=== PATIENT | female | born 1995 | race Caucasian/White ===

== ENCOUNTER 2016-09-20 16:43 | Emergency (ER) | payer MEDICAID ==
[~2016-09-20 16:43] MED LIST: PREN1CAP PO
--- NOTE | 2016-09-20 17:26 | PD ---
HPI Chief Complaint The patient complains of left lower quadrant abdominal pain that starts in the left low back and radiates around to the front, this been going on for several hours today. Date Seen: September 20, 2016 Travel History International Travel<30 Days: No Contact w/Intl Traveler<30Days: No Known Affected Area: No History of Present Illness HPI This patient is 21-year-old white female at 29 weeks gestation [facility] She presents complaining of low left lower quadrant abdominal pain that originated around in the left low back in and came around front. She denies bleeding or leakage of fluid, baby is active, no contractions , heart rate tracing is reactive. Para: 0 : 1 History Social History Alcohol Use: No Tobacco Use: No Substance Abuse: No Allergies-Medications (Allergen,Severity, Reaction): Coded Allergies: Common Ragweed (Verified Allergy, Severe, 09/09/16) Dog Dander (Verified Allergy, Severe, 09/09/16) Grass (Verified Allergy, Severe, 09/09/16) Uncoded Allergies: TREES (Allergy, Severe, 05/07/12) Home Meds Active Scripts Vit W/ Fe Polysacch C (Vitafol Ultra 29-0.6-0.4-200 mg)1 Cap Cap1 Tab PO DAILY #30 BOTTLE Ref 11 Prov:Soni Myers 06/23/16 Review of Systems General / Constitutional: No: Fever, Weight Gain, Chills, Other Eyes: No: Diploplia, Blurred Vision, Visual changes, Pain, Photophobia HENT: No: Headaches, Vertigo, Lightheadedness Cardiovascular: No: Irregular Rhythm, Chest Pain or Discomfort, Palpitations, Tachycardia, Syncope, Varicosities, Edema, Cyanosis Respiratory: No: Cough, Short of Breath, Other Gastrointestinal: Abdominal Pain, No: Nausea, Vomiting, Diarrhea Genitourinary: No: Decreased Urinary Output, Oliguria Musculoskeletal: No: Limited ROM, Weakness, Cramping, Edema, Pain Skin: No Rash, No Itching, No Dryness, No Lumps, No Change in Pigmentation, No Change in Nails, No Alopecia, No Lesions Neurologic: No: Weakness, Dizziness, Syncope, Focal Abnormalities, Coordination Problem, Headache, Slurred Speech, Seizures Psychiatric: No: Depression, Suicidal Ideations, Homicidal Ideation Endocrine: No: Heat Intolerance, Cold Intolerance, Polydipsia, Polyuria, Other Physical Exam Narrative GENERAL: Well-nourished, well-developed patient. SKIN: Warm and dry. HEAD: Normocephalic and atraumatic. EYES: No scleral icterus. No injection or drainage. ENT: No nasal drainage noted. Mucous membranes pink. Airway patent. NECK: Supple, trachea midline. No JVD. CARDIOVASCULAR: Regular rate and rhythm without murmurs, gallops, or rubs. RESPIRATORY: Breath sounds equal bilaterally. No accessory muscle use. BREASTS: Bilateral exam showed no masses , no retractions, no nipple discharge. ABDOMEN/GI: Abdomen soft, non-tender, bowel sounds present, no rebound, no guarding , no CVA tenderness her pain is in the lumbar area on the left Gravid to [29-] weeks size Fundal Height: [-29] GENITOURINARY: External Genitalia: intact and normal in appearance BUS glands: [-] Cervix: [-] Dilatation: [-Closed] Effacement: [-] Thick Station: [-3] ] Membranes: [intact ] Uterine Contractions: 0 FHT's: Category: [1-] Baseline: [133-] Reactive: [-yes] Variability: [mod-] Decels: [-none] EXTREMITIES: No cyanosis or edema. BACK: Nontender without obvious deformity. No CVA tenderness. NEUROLOGICAL: Awake and alert. Motor and sensory grossly within normal limits. Five out of 5 muscle strength in all muscle groups. Normal speech. Data Data Orders Vital Signs (Adult) .ON ADMISSION (09/20/16 17:13) ^ Labor Status (09/20/16 17:13) Urinalysis - C+S If Indicated (09/20/16 17:13) MDM Interpretation(s) This patient is 21-year-old white female at 29 weeks presents complaining of left lower back pain that radiates around to the front in the left lower quadrant. She denies bleeding or rupture the membranes. Baby is active. heart tracing is reactive. No contractions. Cervix is closed long and thick. Urinalysis is pending at time of dictation and once it is back if positive for UTI that she was given a prescription for oral antibiotics. Is negative that she will be up to be discharged. Plan Plan for patient to be at bedrest at home as much as possible using Tylenol 1-2 every 4 hours when necessary pain heating pad on low across her back and lower abdomen versus soaking in a hot bath. She is to hydrate drink lots of water. And follow-up with her OB provider if worsening symptoms noted. As mentioned above if her urine shows positive UTI symptoms will provide antibiotics prior to discharge. Diagnosis Diagnosis: Primary Impression: Abdominal pain during in third trimester Additional Impression: Low back pain during in third trimester Disposition: 01 DISCHARGE HOME Condition: Stable Sukh Funez II, MD September 20, 2016 17:26
[2016-09-20 18:11] LABS: BACTERIA, URINE OCC /hpf; BLOOD, URINE NEG (NEG); COMMENT (UR) CULT NOT INDICATED; CULTURE IF INDICATED CULT NOT INDICATED; GLUCOSE,URINE NEG (NEG); KETONE, URINE NEG (NEG); MUCUS URINE FEW /lpf (OCC); NITRITE,URINE NEG (NEG); SQUAMOUS EPITHELIAL CELL URINE 1 /hpf (0-5); URINE COLOR YELLOW (YELLW/STRAW)
[2016-10-25] MEDS ORDERED: AZIT250T3 PO (15:48)
[2016-10-25] MEDS ORDERED: TERC0.4C2 VAGINAL (15:48)
== END 2016-09-20 18:29 | disposition home or self-care (01) ==
LOC: HOBED 16:43
DX: R10.32 Left lower quadrant pain (principal); M54.5 Low back pain
CPT/HCPCS: 59025; 81001

== ENCOUNTER 2016-09-23 19:06 | Emergency (ER) | payer MEDICAID ==
[~2016-09-23] VITALS: Ht 157.5 cm; Wt 68.0 kg
[2016-09-23 19:30] VITALS: BP 114/57; PULSE 87; RESP 15; TEMP 98.4; O2SAT 97
[2016-09-23 20:22] LABS: AUTOMATED NEUTROPHIL # 7.7 TH/MM3 (1.8-7.7); BASOPHIL % 0.2 % (0.0-2.0); EOSINOPHIL # 0.4 TH/MM3 (0-0.4); HEMATOCRIT 32.1 % (35.0-46.0); HEMO FLAGS DIFF FINAL; LYMPH % 14.7 % (9.0-44.0); LYMPHOCYTE # 1.6 TH/MM3 (1.0-4.8); MEAN CELL VOLUME 82.5 FL (80.0-100.0); MEAN CORPUSCULAR HEMOGLOBIN 28.5 PG (27.0-34.0); MEAN CORPUSCULAR HGB CONC 34.6 % (32.0-36.0); MONO % 9.2 % (0.0-8.0); NEUT % 71.9 % (16.0-70.0); PLATELET COUNT 162 TH/MM3 (150-450); RED BLOOD COUNT 3.89 MIL/MM3 (4.00-5.30); RED CELL DISTRIBUTION WIDTH 12.3 % (11.6-17.2); WHITE BLOOD COUNT 10.7 TH/MM3 (4.0-11.0)
[2016-09-23 20:39] LABS: ANION GAP 9 MEQ/L (5-15); BICARBONATE 24.1 MEQ/L (21.0-32.0); BLOOD UREA NITROGEN 7 MG/DL (7-18); CHLORIDE 106 MEQ/L (98-107); GLOMERULAR FILTRATION RATE 144 ML/MIN (>89); POTASSIUM 3.4 MEQ/L (3.5-5.1); SODIUM (NA) 139 MEQ/L (136-145)
--- NOTE | 2016-09-23 20:39 | RADRPT ---
EXAM DATE/TIME: 09/23/2016 20:20 [facility] COMPARISON: No previous studies available for comparison. INDICATIONS : Chest numbness since yesterday. MEDICAL HISTORY : None. SURGICAL HISTORY : None. ENCOUNTER: Initial ACUITY: 2 days PAIN SCORE: 0/10 LOCATION: Bilateral chest FINDINGS: A single view of the chest demonstrates the lungs to be symmetrically aerated without evidence of mas s, infiltrate or effusion. The cardiomediastinal contours are unremarkable. Osseous structures are intact. CONCLUSION: No acute disease. Kelton Sorto MD on September 23, 2016 at 20:37 Board Certified Radiologist. This report was verified electronically.
[2016-09-23 20:53] LABS: CREATINE KINASE 86 U/L (26-192)
--- NOTE | 2016-09-23 21:18 | EKG ---
Date Performed: 09/23/2016 Time Performed: 19:49:55 PTAGE: 21 years EKG: Sinus rhythm NORMAL ECG NO SIGNIFICANT CHANGE FROM PRIOR ELECTROCARDIOGRAM. PREVIOUS TRACING : 12/21/2012 09.54 DOCTOR: Mak Petty Interpretating Date/Time 09/23/2016 21:17:57
--- NOTE | 2016-09-23 21:50 | PD ---
HPI Chief Complaint: Chest Pain Time Seen by Provider: 00:00 Travel History International Travel<30 days: No Contact w/Intl Traveler<30days: No Traveled to known affect area: No History of Present Illness HPI 21-year-old female complains of numbness sensation anterior chest wall. Patient states that the has been intermittent since yesterday. Patient is 30 week . Patient was seen at the OB department and sent to ED for evaluation of the chest wall numbness. Patient denies any chest pain. Patient denies any headache. Patient denies any coughing congestion shortness of breath. Patient denies abdominal pain. Patient states that the fetus active. Patient denies any vaginal discharge or bleeding. Patient denies any dysuria or frequency. Patient denies any fever chills. PFSH Past Medical History ADHD: Yes Cancer: No Cardiovascular Problems: Yes (MITRAL VALVE PROLAPSE) Diabetes: No Diminished Hearing: No GERD: Yes Psychiatric: Yes (MOOD ODD) Immunizations Current: Yes Migraines: No Seizures: No Thyroid Disease: No Ulcer: No Tetanus Vaccination: < 5 Years Influenza Vaccination: No ?: Past Surgical History Ear Surgery: Yes (tubes) Gynecologic Surgery: Yes (teeth) Tonsillectomy: Yes Other Surgery: Yes (TONSILECTOMY) Social History Alcohol Use: No Tobacco Use: No (QUIT 2 WEEKS AGO ) Substance Use: Yes Allergies-Medications (Allergen,Severity, Reaction): Coded Allergies: Common Ragweed (Verified Allergy, Severe, 09/23/16) Dog Dander (Verified Allergy, Severe, 09/23/16) Grass (Verified Allergy, Severe, 09/23/16) Uncoded Allergies: TREES (Allergy, Severe, 05/07/12) Reported Meds & Prescriptions Reported Meds & Active Scripts Active Vitafol Ultra 29-0.6-0.4-200 mg ( Vit W/ Fe Polysacch C) 1 Cap Cap 1 Tab PO DAILY Review of Systems General / Constitutional: No: Fever Eyes: No: Visual changes HENT: No: Headaches Cardiovascular: No: Chest Pain or Discomfort Respiratory: No: Shortness of Breath Gastrointestinal: No: Abdominal Pain Genitourinary: No: Dysuria Musculoskeletal: No: Pain Skin: No Rash Neurologic: No: Weakness Psychiatric: No: Depression Endocrine: No: Polydipsia Hematologic/Lymphatic: No: Easy Bruising Physical Exam Narrative GENERAL: Well-nourished, well-developed patient. SKIN: Focused skin assessment warm/dry. HEAD: Normocephalic. EYES: No scleral icterus. No injection or drainage. NECK: Supple, trachea midline. No JVD or lymphadenopathy. CARDIOVASCULAR: Regular rate and rhythm without murmurs, gallops, or rubs. RESPIRATORY: Breath sounds equal bilaterally. No accessory muscle use. GASTROINTESTINAL: Abdomen soft, non-tender, nondistended. MUSCULOSKELETAL: No cyanosis, or edema. BACK: Nontender without obvious deformity. No CVA tenderness. Neurologic exam normal. Data Data Last Documented VS Vital Signs Date Time Temp Pulse Resp B/P Pulse Ox O2 Delivery O2 Flow Rate FiO2 09/23/16 22:13 100 Room Air 09/23/16 22:13 73 18 09/23/16 19:30 98.4 114/57 Orders Electrocardiogram (09/23/16 19:37) Complete Blood Count With Diff (09/23/16 19:37) Basic Metabolic Panel (Bmp) (09/23/16 19:37) Ckmb (Isoenzyme) Profile (09/23/16 19:37) Troponin I (09/23/16 19:37) Chest, Single Ap (09/23/16 19:37) Iv Access Insert/Monitor (09/23/16 19:37) Ecg Monitoring (09/23/16 19:37) Oxygen Administration (09/23/16 19:37) Oximetry (09/23/16 19:37) Labs Laboratory Tests Test 09/23/16 19:58 White Blood Count 10.7 TH/MM3 Red Blood Count 3.89 MIL/MM3 Hemoglobin 11.1 GM/DL Hematocrit 32.1 % Mean Corpuscular Volume 82.5 FL Mean Corpuscular Hemoglobin 28.5 PG Mean Corpuscular Hemoglobin 34.6 % Concent Red Cell Distribution Width 12.3 % Platelet Count 162 TH/MM3 Mean Platelet Volume 9.2 FL Neutrophils (%) (Auto) 71.9 % Lymphocytes (%) (Auto) 14.7 % Monocytes (%) (Auto) 9.2 % Eosinophils (%) (Auto) 4.0 % Basophils (%) (Auto) 0.2 % Neutrophils # (Auto) 7.7 TH/MM3 Lymphocytes # (Auto) 1.6 TH/MM3 Monocytes # (Auto) 1.0 TH/MM3 Eosinophils # (Auto) 0.4 TH/MM3 Basophils # (Auto) 0.0 TH/MM3 CBC Comment DIFF FINAL Differential Comment Sodium Level 139 MEQ/L Potassium Level 3.4 MEQ/L Chloride Level 106 MEQ/L Carbon Dioxide Level 24.1 MEQ/L Anion Gap 9 MEQ/L Blood Urea Nitrogen 7 MG/DL Creatinine 0.54 MG/DL Estimat Glomerular Filtration 144 ML/MIN Rate Random Glucose 89 MG/DL Calcium Level 8.3 MG/DL Total Creatine Kinase 86 U/L Troponin I LESS THAN 0.02 NG/ML MDM Medical Decision Making Medical Screen Exam Complete: Yes Emergency Medical Condition: Yes Interpretation(s) 21:48 PM. EKG shows sinus rhythm nonspecific ST-T wave changes. Last Impressions Chest X-Ray 09/23/161936 Signed Impressions: Service Date/Time: , September 23, 2016 20:20 - CONCLUSION: No acute disease. Kelton Sorto MD 21:48 PM. CBC within normal limit. BMP within normal limit. Cardiac enzymes are normal. Differential Diagnosis Differential diagnosis including musculoskeletal, neuralgia, angina, NC, PE, pneumothorax. Narrative Course 21-year-old female with intermittent anterior chest wall numbness. EKG shows sinus rhythm nonspecific ST-T wave change. CBC BMP within normal limit. Cardiac enzymes are normal. Diagnosis Primary Impression: Neuralgia Additional Instructions: Follow-up with local physician. Return as needed. Patient was referred back to OB Department for evaluation. Jose Cruz Nagel MD September 23, 2016 21:50
--- NOTE | 2016-09-23 23:29 | PD ---
HPI Chief Complaint Chest wall numbness Date Seen: September 23, 2016 Travel History International Travel<30 Days: No Contact w/Intl Traveler<30Days: No Known Affected Area: No History of Present Illness HPI This patient is 21-year-old white female at 30 weeks [facility] She presented emergency room complaining of chest wall numbness today with no particular chest pain no shortness of breath, she denies obstetric problems no bleeding leaking or contractions. Baby is active heart rate tracing is reactive and no contractions seen. Patient was in the emergency room for some time with for workup there with normal labs EKG and chest x-ray, recent patient appeared for monitoring and clearance so she can go home Para: 0 : 1 History Social History Alcohol Use: No Tobacco Use: No Substance Abuse: No Allergies-Medications (Allergen,Severity, Reaction): Coded Allergies: Common Ragweed (Verified Allergy, Severe, 09/23/16) Dog Dander (Verified Allergy, Severe, 09/23/16) Grass (Verified Allergy, Severe, 09/23/16) Uncoded Allergies: TREES (Allergy, Severe, 05/07/12) Home Meds Active Scripts Vit W/ Fe Polysacch C (Vitafol Ultra 29-0.6-0.4-200 mg)1 Cap Cap1 Tab PO DAILY #30 BOTTLE Ref 11 Prov:Soni Myers 06/23/16 Review of Systems General / Constitutional: No: Fever, Weight Gain, Chills, Other Eyes: No: Diploplia, Blurred Vision, Visual changes, Pain, Photophobia HENT: No: Headaches, Vertigo, Lightheadedness Cardiovascular: Chest Pain or Discomfort, No: Irregular Rhythm, Palpitations, Tachycardia, Syncope, Varicosities, Edema, Cyanosis Respiratory: No: Cough, Short of Breath, Other Gastrointestinal: No: Nausea, Vomiting, Diarrhea Genitourinary: No: Decreased Urinary Output, Oliguria Musculoskeletal: No: Limited ROM, Weakness, Cramping, Edema, Pain Skin: No Rash, No Itching, No Dryness, No Lumps, No Change in Pigmentation, No Change in Nails, No Alopecia, No Lesions Neurologic: No: Weakness, Dizziness, Syncope, Focal Abnormalities, Coordination Problem, Headache, Slurred Speech, Seizures Psychiatric: No: Depression, Suicidal Ideations, Homicidal Ideation Endocrine: No: Heat Intolerance, Cold Intolerance, Polydipsia, Polyuria, Other Physical Exam Vital Signs Date Time Temp Pulse Resp B/P Pulse Ox O2 Delivery O2 Flow Rate FiO2 09/23/16 22:13 100 Room Air 09/23/16 22:13 73 18 100 Room Air 09/23/16 19:30 98.4 87 15 114/57 97 Room Air Narrative GENERAL: Well-nourished, well-developed patient. SKIN: Warm and dry. HEAD: Normocephalic and atraumatic. EYES: No scleral icterus. No injection or drainage. ENT: No nasal drainage noted. Mucous membranes pink. Airway patent. NECK: Supple, trachea midline. No JVD. CARDIOVASCULAR: Regular rate and rhythm without murmurs, gallops, or rubs. RESPIRATORY: Breath sounds equal bilaterally. No accessory muscle use. BREASTS: Bilateral exam showed no masses , no retractions, no nipple discharge. ABDOMEN/GI: Abdomen soft, non-tender, bowel sounds present, no rebound, no guarding Gravid to [30-] weeks size Fundal Height: [30-] GENITOURINARY: Membranes: [intact ] Uterine Contractions: [-none] FHT's: Category: [-1] Baseline: [-155] Reactive: [-yes] Variability: [-mod] Decels: [none-] EXTREMITIES: No cyanosis or edema. BACK: Nontender without obvious deformity. No CVA tenderness. NEUROLOGICAL: Awake and alert. Motor and sensory grossly within normal limits. Five out of 5 muscle strength in all muscle groups. Normal speech. Data Data Orders Electrocardiogram (09/23/16 19:37) Complete Blood Count With Diff (09/23/16 19:37) Basic Metabolic Panel (Bmp) (09/23/16 19:37) Ckmb (Isoenzyme) Profile (09/23/16 19:37) Troponin I (09/23/16 19:37) Chest, Single Ap (09/23/16 19:37) Iv Access Insert/Monitor (09/23/16 19:37) Ecg Monitoring (09/23/16 19:37) Oxygen Administration (09/23/16 19:37) Oximetry (09/23/16 19:37) Labs Laboratory Tests Test 09/23/16 19:58 White Blood Count 10.7 Red Blood Count 3.89 Hemoglobin 11.1 Hematocrit 32.1 Mean Corpuscular Volume 82.5 Mean Corpuscular Hemoglobin 28.5 Mean Corpuscular Hemoglobin 34.6 Concent Red Cell Distribution Width 12.3 Platelet Count 162 Mean Platelet Volume 9.2 Neutrophils (%) (Auto) 71.9 Lymphocytes (%) (Auto) 14.7 Monocytes (%) (Auto) 9.2 Eosinophils (%) (Auto) 4.0 Basophils (%) (Auto) 0.2 Neutrophils # (Auto) 7.7 Lymphocytes # (Auto) 1.6 Monocytes # (Auto) 1.0 Eosinophils # (Auto) 0.4 Basophils # (Auto) 0.0 CBC Comment DIFF FINAL Differential Comment Sodium Level 139 Potassium Level 3.4 Chloride Level 106 Carbon Dioxide Level 24.1 Anion Gap 9 Blood Urea Nitrogen 7 Creatinine 0.54 Estimat Glomerular Filtration 144 Rate Random Glucose 89 Calcium Level 8.3 Total Creatine Kinase 86 Troponin I LESS THAN 0.02 MDM Interpretation(s) This patient is 21-year-old white female at 30 weeks presents complaining of chest wall numbness, no obstetric problems bleeding or leaking or contractions, heart rates within normal limits and no contractions seen. Baby is active. Patient in the emergency room and her chest pain and/numbness workup was negative, she was sent for monitoring which was done and shows normal heart rate and activity Plan Plan patient be discharged home to bedrest much possible clear fluids increase oral hydration and take Tylenol when necessary, bedrest is effective for this type problems, she is to follow-up with her OB provider return here for other symptomatology Diagnosis Diagnosis: Primary Impression: Neuralgia Additional Impression: Chest discomfort Disposition: 01 DISCHARGE HOME Condition: Stable Patient Instructions: General Instructions, Labor (ED) Additional Instructions: Follow-up with local physician. Return as needed. Patient was referred back to OB Department for evaluation. Departure Forms: Tests/Procedures Sukh Funez II, MD September 23, 2016 23:29
[2016-10-25] MEDS ORDERED: AZIT250T3 PO (15:48)
[2016-10-25] MEDS ORDERED: TERC0.4C2 VAGINAL (15:48)
== END 2016-09-23 23:37 | disposition home or self-care (01) ==
LOC: HOBED 19:06
DX: O99.353 Diseases of the nervous system complicating pregnancy, third trimester (principal); M79.2 Neuralgia and neuritis, unspecified; Z3A.30 30 weeks gestation of pregnancy; I34.1 Nonrheumatic mitral (valve) prolapse; Z87.891 Personal history of nicotine dependence
CPT/HCPCS: 71010; 80048; 82550; 84484; 85025; 93005; 99283

== ENCOUNTER 2016-09-29 18:17 | Observation (INO) | payer MEDICAID ==
[~2016-09-29] VITALS: Ht 157.5 cm; Wt 66.2 kg
[2016-09-29] MEDS ORDERED: ACETAMINOPHEN 325 MG TAB PO PRN (19:00)
--- NOTE | 2016-09-29 19:00 | PD ---
HPI Chief Complaint Fall Date Seen: September 29, 2016 Travel History International Travel<30 Days: No Contact w/Intl Traveler<30Days: No Known Affected Area: No History of Present Illness HPI 21 yo @ 30w6d with LIANE 12-02-2016. care with [facility]. Patient reports slipping on some soda on the floor after getting up from a sitting position. She fell back onto her left elbow and left upper side. She did not hit her abdomen. She denies any injuries (other than a scrap in her left elbow), no abdominal pain, contractions, vaginal bleeding or LOF. +FM. Good appetite. She is RH- and received Rhogam 2 weeks ago. History Past Medical History Medical History: Denies Significant Hx Obstetric History Obstetric History G1 Past Surgical History Surgical History: No Previous Surgery Family History Family History: Negative Social History Alcohol Use: No Tobacco Use: No Substance Abuse: No (Hx of THC usage) Allergies-Medications (Allergen,Severity, Reaction): Coded Allergies: Common Ragweed (Verified Allergy, Severe, 09/23/16) Dog Dander (Verified Allergy, Severe, 09/23/16) Grass (Verified Allergy, Severe, 09/23/16) Uncoded Allergies: TREES (Allergy, Severe, 05/07/12) Home Meds Active Scripts Vit W/ Fe Polysacch C (Vitafol Ultra 29-0.6-0.4-200 mg)1 Cap Cap1 Tab PO DAILY #30 BOTTLE Ref 11 Prov:Soni Myers 06/23/16 Review of Systems General / Constitutional: No: Fever, Chills Eyes: No: Blurred Vision, Visual changes HENT: No: Headaches Cardiovascular: No: Chest Pain or Discomfort, Palpitations Respiratory: No: Cough, Short of Breath Gastrointestinal: No: Nausea, Vomiting, Abdominal Pain, Loss of Appetite Genitourinary: No: Urgency, Frequency, Dysuria, Pelvic Pain, Discharge, Vaginal Bleeding Musculoskeletal: No: Limited ROM, Weakness, Cramping, Edema Skin: No Rash, No Itching, No Lesions Neurologic: No: Weakness, Dizziness, Syncope, Focal Abnormalities, Coordination Problem Hematologic/Lymphatic: No Easy Bruising Physical Exam Narrative GENERAL: Well-nourished, well-developed patient. SKIN: Warm and dry. HEAD: Normocephalic and atraumatic. EYES: No scleral icterus. No injection or drainage. ENT: No nasal drainage noted. Mucous membranes pink. Airway patent. NECK: trachea midline. No JVD. CARDIOVASCULAR: Regular rate VSS RESPIRATORY: No accessory muscle use. ABDOMEN/GI: Abdomen soft, non-tender, no rebound, no guarding Gravid, NT TOCO: No UC FHT's: Category: I Baseline: 135 Reactive: + accelerations Variability: mod Decels: [-] EXTREMITIES: No cyanosis or edema. Left elbow with minor scratch, no bruising, normal ROM, NT BACK: Nontender without obvious deformity. No bruising, NT. No CVA tenderness. NEUROLOGICAL: Awake and alert. Motor and sensory grossly within normal limits. Normal speech. Data Data Vital Signs Reviewed: Yes Orders Ob (2e) Additional Admit Info (09/29/16 18:44) Vital Signs (Adult) .ON ADMISSION (09/29/16 18:45) ^ Labor Status (09/29/16 18:45) ^ Non Stress Test (09/29/16 18:45) MDM Narrative Course / MDM Minor Trauma - Fall in No acute injuries No abdominal trauma Continuous monitoring 4-6 hours post-fall Plan Prolonged monitoring CAT I No UC No complaints D/c home Patient has f/u OB in AM Precautions reviewed. Marietta Chavez MD September 29, 2016 18:59
[2016-09-29 19:02] VITALS: RESP 18
[2016-09-29 19:03] VITALS: BP 105/61; PULSE 86
[2016-09-29 21:00] VITALS: RESP 18
[2016-09-29 22:00] VITALS: RESP 18
[2016-09-29 23:00] VITALS: RESP 18
--- NOTE | 2016-09-29 23:12 | HHI.PR ---
PRODUCT DEVELOPMENT TECHNICIAN Note Note HPI Chief Complaint Fall Date Seen: September 29, 2016 Travel History International Travel<30 Days: No Contact w/Intl Traveler<30Days: No Known Affected Area: No History of Present Illness HPI 21 yo @ 30w6d with LIANE 12-02-2016. care with [facility]. Patient reports slipping on some soda on the floor after getting up from a sitting position. She fell back onto her left elbow and left upper side. She did not hit her abdomen. She denies any injuries (other than a scrap in her left elbow), no abdominal pain, contractions, vaginal bleeding or LOF. +FM. Good appetite. She is RH- and received Rhogam 2 weeks ago. History (Limited) History Past Medical History Medical History: Denies Significant Hx Obstetric History Obstetric History G1 Past Surgical History Surgical History: No Previous Surgery Family History Family History: Negative Social History Alcohol Use: No Tobacco Use: No Substance Abuse: No (Hx of THC usage) Allergies-Medications Allergies-Medications (Allergen,Severity, Reaction): Coded Allergies: Common Ragweed (Verified Allergy, Severe, 09/23/16) Dog Dander (Verified Allergy, Severe, 09/23/16) Grass (Verified Allergy, Severe, 09/23/16) Uncoded Allergies: TREES (Allergy, Severe, 05/07/12) Home Meds Active Scripts Vit W/ Fe Polysacch C (Vitafol Ultra 29-0.6-0.4-200 mg)1 Cap Cap1 Tab PO DAILY #30 BOTTLE Ref 11 Prov:Soni Myers 06/23/16 ROS Review of Systems General / Constitutional: No: Fever, Chills Eyes: No: Blurred Vision, Visual changes HENT: No: Headaches Cardiovascular: No: Chest Pain or Discomfort, Palpitations Respiratory: No: Cough, Short of Breath Gastrointestinal: No: Nausea, Vomiting, Abdominal Pain, Loss of Appetite Genitourinary: No: Urgency, Frequency, Dysuria, Pelvic Pain, Discharge, Vaginal Bleeding Musculoskeletal: No: Limited ROM, Weakness, Cramping, Edema Skin: No Rash, No Itching, No Lesions Neurologic: No: Weakness, Dizziness, Syncope, Focal Abnormalities, Coordination Problem Hematologic/Lymphatic: No Easy Bruising Physical Exam Physical Exam Narrative GENERAL: Well-nourished, well-developed patient. SKIN: Warm and dry. HEAD: Normocephalic and atraumatic. EYES: No scleral icterus. No injection or drainage. ENT: No nasal drainage noted. Mucous membranes pink. Airway patent. NECK: trachea midline. No JVD. CARDIOVASCULAR: Regular rate VSS RESPIRATORY: No accessory muscle use. ABDOMEN/GI: Abdomen soft, non-tender, no rebound, no guarding Gravid, NT TOCO: No UC FHT's: Category: I Baseline: 135 Reactive: + accelerations Variability: mod Decels: [-] EXTREMITIES: No cyanosis or edema. Left elbow with minor scratch, no bruising, normal ROM, NT BACK: Nontender without obvious deformity. No bruising, NT. No CVA tenderness. NEUROLOGICAL: Awake and alert. Motor and sensory grossly within normal limits. Normal speech. Data Data Data Vital Signs Reviewed: Yes Orders Ob (2e) Additional Admit Info (09/29/16 18:44) Vital Signs (Adult) .ON ADMISSION (09/29/16 18:45) ^ Labor Status (09/29/16 18:45) ^ Non Stress Test (09/29/16 18:45) MDM MDM Narrative Course / MDM Minor Trauma - Fall in No acute injuries No abdominal trauma Continuous monitoring 4-6 hours post-fall Plan Prolonged monitoring CAT I No UC No complaints D/c home Patient has f/u OB in AM Precautions reviewed. Marietta Chavez MD September 29, 2016 18:59 Marietta Chavez MD September 29, 2016 23:11
[2016-10-25] MEDS ORDERED: AZIT250T3 PO (15:48)
[2016-10-25] MEDS ORDERED: TERC0.4C2 VAGINAL (15:48)
== END 2016-09-29 23:20 | disposition home or self-care (01) ==
LOC: HOBED 18:17 → H2EA 18:45
PROVIDERS: ADMIT Obstetrics & Gynecology; ATTEND Obstetrics & Gynecology
DX: O9A.213 Injury, poisoning and certain other consequences of external causes complicating pregnancy, third trimester (principal); S50.312A Abrasion of left elbow, initial encounter; Z3A.30 30 weeks gestation of pregnancy; Z91.018 Allergy to other foods; Z91.048 Other nonmedicinal substance allergy status; W01.0XXA Fall on same level from slipping, tripping and stumbling without subsequent striking against object, initial encounter
CPT/HCPCS: 59025; 99284; G0378

== ENCOUNTER 2016-10-21 20:33 | Emergency (ER) | payer MEDICAID ==
[2016-10-21 20:50] VITALS: RESP 18; TEMP 98.3
[2016-10-21 20:51] VITALS: BP 102/61; PULSE 92
[2016-10-21 21:23] LABS: BACTERIA, URINE MOD /hpf; BLOOD, URINE NEG (NEG); COMMENT (UR) CULTURE INDICATED; CULTURE IF INDICATED CULTURE INDICATED; GLUCOSE,URINE NEG (NEG); KETONE, URINE NEG (NEG); NITRITE,URINE NEG (NEG); SQUAMOUS EPITHELIAL CELL URINE 3 /hpf (0-5); URINE COLOR YELLOW (YELLW/STRAW)
[2016-10-21] MEDS ORDERED: NITR100C4 PO (21:40)
[2016-10-21] MEDS ORDERED: ONDANSETRON ODT 4 MG TAB PO ONE (21:45)
[2016-10-21] MEDS ORDERED: NITROFURANTOIN MONOHYD MACROCR 100 MG CAP PO ONE (21:45)
--- NOTE | 2016-10-21 21:49 | PD ---
HPI Chief Complaint nausea and vomiting Date Seen: Oct 21, 2016 Travel History International Travel<30 Days: No Contact w/Intl Traveler<30Days: No Known Affected Area: No History of Present Illness HPI 21 yo @ 34w0d with LIANE 12-02-2016. care with [facility]. Patient presents tonight with c/o nausea and vomiting intermittently for 3 days. Some abdominal cramping but no diarrhea. Denies urinary symptoms. No VB , UC, LOF.+FM History Past Medical History Narrative Medical THC usage Obstetric History Obstetric History Past Surgical History Surgical History: No Previous Surgery Family History Family History: Negative Social History Alcohol Use: No Tobacco Use: No Substance Abuse: Yes (Hx of THC usage) Allergies-Medications (Allergen,Severity, Reaction): Coded Allergies: Common Ragweed (Verified Allergy, Severe, 10/14/16) Dog Dander (Verified Allergy, Severe, 10/14/16) Grass (Verified Allergy, Severe, 10/14/16) Uncoded Allergies: TREES (Allergy, Severe, 05/07/12) Home Meds Active Scripts Nitrofurantoin Monohydrate Macrocrystals 100 Mg [id number] Mg PO ONCE 7 Days Prov:Marietta Chavez MD 10/21/16 Vit W/ Fe Polysacch C (Vitafol Ultra 29-0.6-0.4-200 mg)1 Cap Cap1 Tab PO DAILY #30 BOTTLE Ref 11 Prov:Soni Myers 06/23/16 Review of Systems General / Constitutional: No: Fever, Chills Eyes: No: Blurred Vision, Visual changes HENT: No: Headaches, Lightheadedness Cardiovascular: No: Chest Pain or Discomfort, Palpitations Respiratory: No: Cough, Short of Breath Gastrointestinal: Nausea, Vomiting, Abdominal Pain (per hpi), No: Diarrhea, Constipation, Changes in Bowel Habits, Loss of Appetite Genitourinary: No: Urgency, Frequency, Dysuria, Hematuria, Pelvic Pain, Discharge Musculoskeletal: Pain (low back pain), No: Limited ROM, Weakness, Edema Skin: No Rash, No Itching Neurologic: No: Syncope, Focal Abnormalities Physical Exam Vital Signs Date Time Temp Pulse Resp B/P Pulse Ox O2 Delivery O2 Flow Rate FiO2 10/21/16 20:51 92 102/61 10/21/16 20:50 98.3 18 Narrative GENERAL: Well-nourished, well-developed patient. NAD SKIN: Warm and dry. HEAD: Normocephalic and atraumatic. EYES: No scleral icterus. No injection or drainage. ENT: No nasal drainage noted. Mucous membranes pink. Airway patent. NECK: trachea midline. No JVD. CARDIOVASCULAR: Regular rate and rhythm without murmurs, gallops, or rubs. RESPIRATORY: Breath sounds equal bilaterally. No accessory muscle use. ABDOMEN/GI: Abdomen soft, non-tender, no rebound, no guarding Gravid TOCO: No UC FHT's: Category: I Baseline: 140 Reactive: +accelerations Variability: moderated to marked Decels: [-] EXTREMITIES: No cyanosis or edema. BACK: without obvious deformity. No CVA tenderness. Low back tenderness NEUROLOGICAL: Awake and alert. Motor and sensory grossly within normal limits. . Normal speech. Data Data Vital Signs Reviewed: Yes Orders Vital Signs (Adult) .ON ADMISSION (10/21/16 20:46) ^ Labor Status (10/21/16 20:46) Urinalysis - C+S If Indicated (10/21/16 20:46) ^ Non Stress Test (10/21/16 20:46) ^ Hydration (10/21/16 20:46) Urine Culture (10/21/16 20:52) Ondansetron Odt (Zofran Odt) (10/21/16 21:45) Nitrofurantoin Monohyd Macrocr (Macrobid (10/21/16 21:45) Labs Laboratory Tests Test 10/21/16 20:52 Urine Color YELLOW Urine Turbidity HAZY Urine pH 7.0 Urine Specific [place] 1.020 Urine Protein TRACE Urine Glucose (UA) NEG Urine Ketones NEG Urine Occult Blood NEG Urine Nitrite NEG Urine Bilirubin NEG Urine Urobilinogen LESS THAN 2.0 Urine Leukocyte Esterase NEG Urine RBC 1 Urine WBC 5 Urine Squamous Epithelial 3 Cells Urine Bacteria MOD Microscopic Urinalysis Comment CULTURE INDICATED Date/Time Procedure Status Source Growth 10/21/16 20:52 Urine Culture Received Urine Clean Catch Pending MDM Narrative Course / MDM 34 weeks Nausea and vomiting/GI symptoms Tolerating oral fluids VSS, afebrile UA suggestive of UTI, no symptoms of pyelonephritis Low back pain related CAT I FHT Plan D/c home GI related symptoms - bland diet Hydrated with oral fluids - continue to increase fluid Tolerating po UTI, Rx macrobid, single dose given tonight, patient will fill rx in am Reviewed precautions for hydration and oral medication Tylenol PRN for low back pain return as needed has f/u CARLOS next week F/u on urine culture with OB clinic Diagnosis Diagnosis: Primary Impression: Gastrointestinal symptoms during in third trimester, antepartum Additional Impressions: Nausea & vomiting Qualified Code: R11.2 - Non-intractable vomiting with nausea, unspecified vomiting type Genitourinary tract infection during in third trimester 34 weeks gestation of Disposition: DISCHARGE HOME Condition: Good Scripts Nitrofurantoin Monohydrate Macrocrystals 100 Mg [id number] Mg PO ONCE 7 Days Prov:Marietta Chavez MD 10/21/16 Marietta Chavez MD Oct 21, 2016 21:48
[2016-10-25] MEDS ORDERED: AZIT250T3 PO (15:48)
[2016-10-25] MEDS ORDERED: TERC0.4C2 VAGINAL (15:48)
== END 2016-10-22 04:49 | disposition home or self-care (01) ==
LOC: HOBED 20:33
DX: O99.613 Diseases of the digestive system complicating pregnancy, third trimester (principal); R11.2 Nausea with vomiting, unspecified; O23.43 Unspecified infection of urinary tract in pregnancy, third trimester; Z3A.34 34 weeks gestation of pregnancy
CPT/HCPCS: 59025; 81001; 87086

== ENCOUNTER 2016-11-30 00:17 | Emergency (ER) | payer MEDICAID ==
--- NOTE | 2016-11-30 00:58 | PD ---
HPI Chief Complaint Contractions Date Seen: Nov 30, 2016 Time Seen: 00:55 Travel History International Travel<30 Days: No Contact w/Intl Traveler<30Days: No Known Affected Area: No History of Present Illness HPI 21-year-old who is at 39 weeks and 5 days comes in complaining of contractions for most the day. They have not worsened or improved during the day despite activity or rest. Last cervical exam in the office she was closed denies vaginal bleeding discharge or rupture membranes. Good movement History Past Medical History Medical History: Denies Significant Hx Past Surgical History Narrative Surgical [place] teeth, tonsils and adenoids Family History Family History: Negative Social History Alcohol Use: No Tobacco Use: No Substance Abuse: No Allergies-Medications (Allergen,Severity, Reaction): Coded Allergies: Common Ragweed (Verified Allergy, Severe, 11/25/16) Dog Dander (Verified Allergy, Severe, 11/25/16) Grass (Verified Allergy, Severe, 11/25/16) Uncoded Allergies: TREES (Allergy, Severe, 05/07/12) Home Meds Active Scripts Vit W/ Fe Polysacch C (Vitafol Ultra 29-0.6-0.4-200 mg)1 Cap Cap1 Tab PO DAILY #30 BOTTLE Ref 11 Prov:Soni Myers 06/23/16 Review of Systems Except as stated in HPI: all other systems reviewed are Neg Physical Exam Narrative GENERAL: Well-nourished, well-developed patient. SKIN: Warm and dry. HEAD: Normocephalic and atraumatic. EYES: No scleral icterus. No injection or drainage. ENT: No nasal drainage noted. Mucous membranes pink. Airway patent. NECK: Supple, trachea midline. No JVD. CARDIOVASCULAR: Regular rate and rhythm without murmurs, gallops, or rubs. RESPIRATORY: Breath sounds equal bilaterally. No accessory muscle use. BREASTS: Bilateral exam showed no masses , no retractions, no nipple discharge. ABDOMEN/GI: Abdomen soft, non-tender, bowel sounds present, no rebound, no guarding Gravid to [-38] weeks size EFW 7 pounds Fundal Height: [-] GENITOURINARY: External Genitalia: intact and normal in appearance BUS glands: [Normal-] Cervix: [-Posterior] Dilatation: [Closed-] Effacement: [-50] Station: [--3] Presentation: [-Vertex] Membranes: [intact ] Uterine Contractions: [-Irregular every 6-8 minutes] FHT's: Category: [1-] Baseline: [145-] Reactive: [-Moderate] Variability: [-Moderate] Decels: [-Absent] EXTREMITIES: No cyanosis or edema. BACK: Nontender without obvious deformity. No CVA tenderness. NEUROLOGICAL: Awake and alert. Motor and sensory grossly within normal limits. Five out of 5 muscle strength in all muscle groups. Normal speech. Data Data Vital Signs Reviewed: Yes MDM Plan 21-year-old at 39 weeks 5 days with false labor Group B strep negative Home with hydration and follow-up with the OB provider Diagnosis Diagnosis: Primary Impression: 39 weeks gestation of Additional Impression: False labor after 37 completed weeks of gestation Disposition: 01 DISCHARGE HOME Sugar Wallace MD Nov 30, 2016 00:58
== END 2016-11-30 01:05 | disposition home or self-care (01) ==
LOC: HOBED 00:17
DX: O47.1 False labor at or after 37 completed weeks of gestation (principal); Z3A.39 39 weeks gestation of pregnancy
CPT/HCPCS: 59025

== ENCOUNTER 2016-12-01 16:41 | Emergency (ER) | payer MEDICAID ==
[2016-12-01 16:57] VITALS: BP 116/72; PULSE 91; RESP 20; TEMP 98
--- NOTE | 2016-12-01 17:17 | PD ---
HPI Chief Complaint Leaking fluid Date Seen: Dec 01, 2016 Travel History International Travel<30 Days: No Contact w/Intl Traveler<30Days: No Known Affected Area: No History of Present Illness HPI This is a 21-year-old white female at 39 weeks and 6 days presents complaining of possibly leaking fluid per vagina. No bleeding other discharge is present, no contractions, heart rate tracing is reactive, [facility] her amnio sure here on OB ED is negative Para: 0 : 1 History Social History Alcohol Use: No Tobacco Use: No Substance Abuse: No Allergies-Medications (Allergen,Severity, Reaction): Coded Allergies: Common Ragweed (Verified Allergy, Severe, 11/25/16) Dog Dander (Verified Allergy, Severe, 11/25/16) Grass (Verified Allergy, Severe, 11/25/16) Uncoded Allergies: TREES (Allergy, Severe, 05/07/12) Home Meds Active Scripts Vit W/ Fe Polysacch C (Vitafol Ultra 29-0.6-0.4-200 mg)1 Cap Cap1 Tab PO DAILY #30 BOTTLE Ref 11 Prov:Soni Myers 06/23/16 Review of Systems General / Constitutional: No: Fever, Weight Gain, Chills, Other Eyes: No: Diploplia, Blurred Vision, Visual changes, Pain, Photophobia HENT: No: Headaches, Vertigo, Lightheadedness Cardiovascular: No: Irregular Rhythm, Chest Pain or Discomfort, Palpitations, Tachycardia, Syncope, Varicosities, Edema, Cyanosis Respiratory: No: Cough, Short of Breath, Other Gastrointestinal: No: Nausea, Vomiting, Diarrhea Genitourinary: No: Decreased Urinary Output, Oliguria Musculoskeletal: No: Limited ROM, Weakness, Cramping, Edema, Pain Skin: No Rash, No Itching, No Dryness, No Lumps, No Change in Pigmentation, No Change in Nails, No Alopecia, No Lesions Neurologic: No: Weakness, Dizziness, Syncope, Focal Abnormalities, Coordination Problem, Headache, Slurred Speech, Seizures Psychiatric: No: Depression, Suicidal Ideations, Homicidal Ideation Endocrine: No: Heat Intolerance, Cold Intolerance, Polydipsia, Polyuria, Other Physical Exam Vital Signs Date Time Temp Pulse Resp B/P Pulse Ox O2 Delivery O2 Flow Rate FiO2 12/01/16 16:57 98.0 91 20 116/72 Narrative GENERAL: Well-nourished, well-developed patient. SKIN: Warm and dry. HEAD: Normocephalic and atraumatic. EYES: No scleral icterus. No injection or drainage. ENT: No nasal drainage noted. Mucous membranes pink. Airway patent. NECK: Supple, trachea midline. No JVD. CARDIOVASCULAR: Regular rate and rhythm without murmurs, gallops, or rubs. RESPIRATORY: Breath sounds equal bilaterally. No accessory muscle use. BREASTS: Bilateral exam showed no masses , no retractions, no nipple discharge. ABDOMEN/GI: Abdomen soft, non-tender, bowel sounds present, no rebound, no guarding Gravid to [term-] weeks size Fundal Height: [-38] GENITOURINARY: External Genitalia: intact and normal in appearance Membranes: [intact] amnio sure negative Uterine Contractions: [Irregular contractions-] FHT's: Category: [1-] Baseline: [-133] Reactive: [-yes] Variability: [-mod] Decels: [none-] EXTREMITIES: No cyanosis or edema. BACK: Nontender without obvious deformity. No CVA tenderness. NEUROLOGICAL: Awake and alert. Motor and sensory grossly within normal limits. Five out of 5 muscle strength in all muscle groups. Normal speech. Data Data Orders Vital Signs (Adult) .ON ADMISSION (12/01/16 16:53) ^ Labor Status (12/01/16 16:53) ^ Non Stress Test (12/01/16 16:53) ^ Hydration (12/01/16 16:53) Pamg-1 Test .ONCE (12/01/16 16:53) Labs Amnio sure negative MDM Interpretation(s) This patient is 21-year-old white female at 39-40 weeks gestation resents complaining of possibly leaking fluid. Amnio sure is negative now she's having no further leakage. No bleeding or contractions noted. Heart rate tracing is reactive. [facility] Plan Plan to discharge home patient return for any further leakage bleeding or pain. Diagnosis Diagnosis: Primary Impression: No leakage of amniotic fluid into vagina Disposition: 01 DISCHARGE HOME Condition: Stable Sukh Funez II, MD Dec 01, 2016 17:17
== END 2016-12-01 17:29 | disposition home or self-care (01) ==
LOC: HOBED 16:41
DX: N89.8 Other specified noninflammatory disorders of vagina (principal); Z79.899 Other long term (current) drug therapy; Z3A.39 39 weeks gestation of pregnancy; Z34.93 Encounter for supervision of normal pregnancy, unspecified, third trimester
CPT/HCPCS: 84112; 99281

== ENCOUNTER 2016-12-04 00:13 | Emergency (ER) | payer MEDICAID ==
--- NOTE | 2016-12-04 00:48 | PD ---
HPI Chief Complaint Contractions Date Seen: Dec 04, 2016 Time Seen: 00:45 Travel History International Travel<30 Days: No Contact w/Intl Traveler<30Days: No Known Affected Area: No History of Present Illness HPI 21-year-old at 40 weeks 2 days comes in tonight complaining of contractions since last Tuesday. They've occurred off and on that she's been here twice before with past week. Patient was in the office yesterday her cervix was 1 cm. She is group B strep negative Para: 0 : 1 History Past Medical History Medical History: Denies Significant Hx Past Surgical History Narrative Surgical Oral surgery, tonsils Family History Family History: Negative Social History Alcohol Use: No Tobacco Use: No Substance Abuse: No Allergies-Medications (Allergen,Severity, Reaction): Coded Allergies: Common Ragweed (Verified Allergy, Severe, 11/25/16) Dog Dander (Verified Allergy, Severe, 11/25/16) Grass (Verified Allergy, Severe, 11/25/16) Uncoded Allergies: TREES (Allergy, Severe, 05/07/12) Home Meds Active Scripts Vit W/ Fe Polysacch C (Vitafol Ultra 29-0.6-0.4-200 mg)1 Cap Cap1 Tab PO DAILY #30 BOTTLE Ref 11 Prov:Soni Myers 06/23/16 Review of Systems Except as stated in HPI: all other systems reviewed are Neg Physical Exam Narrative GENERAL: Well-nourished, well-developed patient. SKIN: Warm and dry. HEAD: Normocephalic and atraumatic. EYES: No scleral icterus. No injection or drainage. ENT: No nasal drainage noted. Mucous membranes pink. Airway patent. NECK: Supple, trachea midline. No JVD. CARDIOVASCULAR: Regular rate and rhythm without murmurs, gallops, or rubs. RESPIRATORY: Breath sounds equal bilaterally. No accessory muscle use. BREASTS: Bilateral exam showed no masses , no retractions, no nipple discharge. ABDOMEN/GI: Abdomen soft, non-tender, bowel sounds present, no rebound, no guarding Gravid to [39-] weeks size Fundal Height: [-] GENITOURINARY: External Genitalia: intact and normal in appearance BUS glands: [Normal-] Cervix: [Posterior-] Dilatation: [1-] Effacement: [-50] Station: [--2] Presentation: [-Vertex] Membranes: [intact ] Uterine Contractions: [-Irregular every 4-6] FHT's: Category: [-1] Baseline: [140-] Reactive: [-Moderate] Variability: [Moderate-] Decels: [-Absent] EXTREMITIES: No cyanosis or edema. BACK: Nontender without obvious deformity. No CVA tenderness. NEUROLOGICAL: Awake and alert. Motor and sensory grossly within normal limits. Five out of 5 muscle strength in all muscle groups. Normal speech. Data Data Vital Signs Reviewed: Yes [facility] Medical Record Reviewed: Yes Plan 21-year-old who is at 40 weeks and 2 days with false labor Patient will be seen in the office on Tuesday I have encouraged her to set up an induction by 41 weeks Diagnosis Diagnosis: Primary Impression: 40 weeks gestation of Additional Impression: False labor after 37 weeks of gestation without delivery Disposition: 01 DISCHARGE HOME Sugar Wallace MD Dec 04, 2016 00:48
== END 2016-12-04 00:52 | disposition home or self-care (01) ==
LOC: HOBED 00:13
DX: O47.1 False labor at or after 37 completed weeks of gestation (principal); Z3A.40 40 weeks gestation of pregnancy
CPT/HCPCS: 59025

== ENCOUNTER 2016-12-04 16:16 | Emergency (ER) | payer MEDICAID ==
[~2016-12-04] VITALS: Ht 157.5 cm; Wt 70.8 kg
[2016-12-04] MEDS ORDERED: PROMETHAZINE INJ 25 MG/ML VIAL IM ONE (17:00)
[2016-12-04] MEDS ORDERED: MEPERIDINE HCL 50 MG/ML VIAL IM ONE (17:00)
--- NOTE | 2016-12-04 17:01 | PD ---
HPI Chief Complaint Complains of contraction pain Date Seen: Dec 04, 2016 Travel History International Travel<30 Days: No Contact w/Intl Traveler<30Days: No Known Affected Area: No History of Present Illness HPI Patient is 21-year-old white female at 40 weeks presents complaining of contractions. Patient was seen here 15 hours ago was checked and was 1 cm 70% at that time, I just checked the patient she is 1 cm and 80% now, she is no leakage or bleeding. heart rate tracing is reactive she is kev every 5 minutes or so Para: 0 : 1 History Social History Alcohol Use: No Tobacco Use: No Substance Abuse: No Allergies-Medications (Allergen,Severity, Reaction): Coded Allergies: Common Ragweed (Verified Allergy, Severe, 11/25/16) Dog Dander (Verified Allergy, Severe, 11/25/16) Grass (Verified Allergy, Severe, 11/25/16) Uncoded Allergies: TREES (Allergy, Severe, 05/07/12) Home Meds Active Scripts Vit W/ Fe Polysacch C (Vitafol Ultra 29-0.6-0.4-200 mg)1 Cap Cap1 Tab PO DAILY #30 BOTTLE Ref 11 Prov:Soni Myers 06/23/16 Review of Systems General / Constitutional: No: Fever, Weight Gain, Chills, Other Eyes: No: Diploplia, Blurred Vision, Visual changes, Pain, Photophobia HENT: No: Headaches, Vertigo, Lightheadedness Cardiovascular: No: Irregular Rhythm, Chest Pain or Discomfort, Palpitations, Tachycardia, Syncope, Varicosities, Edema, Cyanosis Respiratory: No: Cough, Short of Breath, Other Gastrointestinal: Abdominal Pain, No: Nausea, Vomiting, Diarrhea Genitourinary: No: Decreased Urinary Output, Oliguria Musculoskeletal: No: Limited ROM, Weakness, Cramping, Edema, Pain Skin: No Rash, No Itching, No Dryness, No Lumps, No Change in Pigmentation, No Change in Nails, No Alopecia, No Lesions Neurologic: No: Weakness, Dizziness, Syncope, Focal Abnormalities, Coordination Problem, Headache, Slurred Speech, Seizures Psychiatric: No: Depression, Suicidal Ideations, Homicidal Ideation Endocrine: No: Heat Intolerance, Cold Intolerance, Polydipsia, Polyuria, Other Physical Exam Narrative GENERAL: Well-nourished, well-developed patient. SKIN: Warm and dry. HEAD: Normocephalic and atraumatic. EYES: No scleral icterus. No injection or drainage. ENT: No nasal drainage noted. Mucous membranes pink. Airway patent. NECK: Supple, trachea midline. No JVD. CARDIOVASCULAR: Regular rate and rhythm without murmurs, gallops, or rubs. RESPIRATORY: Breath sounds equal bilaterally. No accessory muscle use. BREASTS: Bilateral exam showed no masses , no retractions, no nipple discharge. ABDOMEN/GI: Abdomen soft, non-tender, bowel sounds present, no rebound, no guarding Gravid to [term-] weeks size Fundal Height: [40-] GENITOURINARY: External Genitalia: intact and normal in appearance BUS glands: [-] Cervix: [-] Dilatation: [-1] Effacement: [-] 80 Station: [-3] Presentation: [-vtx] Membranes: [intact ] Uterine Contractions: [q 5 min-] FHT's: Category: [1-] Baseline: [-133] Reactive: [yes-] Variability: [mod-] Decels: [-none] EXTREMITIES: No cyanosis or edema. BACK: Nontender without obvious deformity. No CVA tenderness. NEUROLOGICAL: Awake and alert. Motor and sensory grossly within normal limits. Five out of 5 muscle strength in all muscle groups. Normal speech. Data Data Orders Meperidine Inj (Demerol Inj) (12/04/16 17:00) Promethazine Inj (Phenergan Inj) (12/04/16 17:00) MDM Interpretation(s) Patient is 21-year-old white female 40 weeks [facility] who presents complaining of contractions. The patient was seen here 15 hours ago was checked was 1 cm and 70%, I checked her just now she is 1 cm and 80% vertex, heart rate tracing reactive contractions every 5 minutes she is in a lot pain. Plan Plan to give the patient Demerol Phenergan IM for her discomfort I imagine within the next 8-12 hours she'll be back and more active labor pattern hopefully dilated more that time Diagnosis Diagnosis: Primary Impression: Prolonged latent phase of labor Disposition: DISCHARGE HOME Condition: Stable Sukh Funez II, MD Dec 04, 2016 17:01
== END 2016-12-04 18:17 | disposition home or self-care (01) ==
LOC: HOBED 16:16
DX: O63.9 Long labor, unspecified (principal); Z3A.40 40 weeks gestation of pregnancy
CPT/HCPCS: 96372; J2175; J2550

== ENCOUNTER 2016-12-04 22:49 | Inpatient (IN) | payer MEDICAID ==
[~2016-12-04] VITALS: Ht 157.5 cm; Wt 70.8 kg
--- NOTE | 2016-12-04 23:31 | PD ---
HPI Chief Complaint Complains of contractions getting worse through the day Date Seen: Dec 04, 2016 Travel History International Travel<30 Days: No Contact w/Intl Traveler<30Days: No Known Affected Area: No History of Present Illness HPI Patient is 21-year-old white female at 40 weeks presents with worsening contractions. Patient is been here several times in the last 24 hours H Jez 1 cm tonight she is now 4 cm 90% and 0 station, heart tones are reactive and she is kev every 3 minutes Para: 0 : 1 History Social History Alcohol Use: No Tobacco Use: Yes Substance Abuse: No Allergies-Medications (Allergen,Severity, Reaction): Coded Allergies: Common Ragweed (Verified Allergy, Severe, 12/04/16) Dog Dander (Verified Allergy, Severe, 12/04/16) Grass (Verified Allergy, Severe, 12/04/16) Uncoded Allergies: TREES (Allergy, Severe, 05/07/12) Home Meds Active Scripts Vit W/ Fe Polysacch C (Vitafol Ultra 29-0.6-0.4-200 mg)1 Cap Cap1 Tab PO DAILY #30 BOTTLE Ref 11 Prov:Soni Myers 06/23/16 Review of Systems General / Constitutional: No: Fever, Weight Gain, Chills, Other Eyes: No: Diploplia, Blurred Vision, Visual changes, Pain, Photophobia HENT: No: Headaches, Vertigo, Lightheadedness Cardiovascular: No: Irregular Rhythm, Chest Pain or Discomfort, Palpitations, Tachycardia, Syncope, Varicosities, Edema, Cyanosis Respiratory: No: Cough, Short of Breath, Other Gastrointestinal: No: Nausea, Vomiting, Diarrhea Genitourinary: No: Decreased Urinary Output, Oliguria Musculoskeletal: No: Limited ROM, Weakness, Cramping, Edema, Pain Skin: No Rash, No Itching, No Dryness, No Lumps, No Change in Pigmentation, No Change in Nails, No Alopecia, No Lesions Neurologic: No: Weakness, Dizziness, Syncope, Focal Abnormalities, Coordination Problem, Headache, Slurred Speech, Seizures Psychiatric: No: Depression, Suicidal Ideations, Homicidal Ideation Endocrine: No: Heat Intolerance, Cold Intolerance, Polydipsia, Polyuria, Other Physical Exam Narrative GENERAL: Well-nourished, well-developed patient. SKIN: Warm and dry. HEAD: Normocephalic and atraumatic. EYES: No scleral icterus. No injection or drainage. ENT: No nasal drainage noted. Mucous membranes pink. Airway patent. NECK: Supple, trachea midline. No JVD. CARDIOVASCULAR: Regular rate and rhythm without murmurs, gallops, or rubs. RESPIRATORY: Breath sounds equal bilaterally. No accessory muscle use. BREASTS: Bilateral exam showed no masses , no retractions, no nipple discharge. ABDOMEN/GI: Abdomen soft, non-tender, bowel sounds present, no rebound, no guarding Gravid to [40-] weeks size Fundal Height: [40-] GENITOURINARY: External Genitalia: intact and normal in appearance BUS glands: [-] Cervix: [-] Dilatation: [-4] Effacement: [90-] Station: [0-] Presentation: [vtx-] Membranes: [intact ] Uterine Contractions: [q 3 min-] FHT's: Category: [-1] Baseline: [-133] Reactive: [-yes] Variability: [mod-] Decels: [none-] EXTREMITIES: No cyanosis or edema. BACK: Nontender without obvious deformity. No CVA tenderness. NEUROLOGICAL: Awake and alert. Motor and sensory grossly within normal limits. Five out of 5 muscle strength in all muscle groups. Normal speech. MDM Interpretation(s) 21-year-old white female at 40 weeks [facility] who presents in labor. She has been here 2 other times in the last 24 hours both times was 1 cm now she is 4 cm 90% and 0 station vertex, heart tones are reactive and she is kev every 3 minutes Plan Plan to admit for labor management augmentation when necessary anticipate vaginal delivery Diagnosis Diagnosis: Primary Impression: Uterine contractions during Condition: Stable Sukh Funez II, MD Dec 04, 2016 23:31
[2016-12-04] MEDS ORDERED: LACTATED RINGER'S 1000 ML INJ 1,000 ML IV PRN (23:37)
--- NOTE | 2016-12-04 23:40 | HHI.HP ---
HPI Chief Complaint contractions Date Seen: Dec 04, 2016 Time Seen: 23:43 Travel History International Travel<30 Days: No Contact w/Intl Traveler<30Days: No Known Affected Area: No History of Present Illness HPI 21 y/o G1 at 40/2 weeks presents for contractions. Pt was seen earlier in ED for contractions and discharged home. Pt returns, stating they are getting stronger and closer together. States they are every 4-5 minutes. Denies any vaginal bleeding, loss of fluids. Endorses some back pain. No headache, changes in vision, leg pain/edema. Sees care for women. No problems during this . Para: 0 : 1 History Past Medical History Narrative Medical MVP Obstetric History Obstetric History G1 Past Surgical History Narrative Surgical Tonsillectomy Adenoidectomy Tympanostomy tubes Family History Family History: Negative Social History Alcohol Use: No Tobacco Use: No Substance Abuse: No Allergies-Medications (Allergen,Severity, Reaction): Coded Allergies: Common Ragweed (Verified Allergy, Severe, 12/04/16) Dog Dander (Verified Allergy, Severe, 12/04/16) Grass (Verified Allergy, Severe, 12/04/16) Uncoded Allergies: TREES (Allergy, Severe, 05/07/12) Home Meds Active Scripts Vit W/ Fe Polysacch C (Vitafol Ultra 29-0.6-0.4-200 mg)1 Cap Cap1 Tab PO DAILY #30 BOTTLE Ref 11 Prov:Soni Myers 06/23/16 Review of Systems General / Constitutional: Weight Gain, No: Fever, Weight Loss Eyes: No: Diploplia, Blurred Vision HENT: No: Headaches, Vertigo Cardiovascular: No: Irregular Rhythm, Chest Pain or Discomfort Respiratory: No: Cough, Short of Breath Gastrointestinal: No: Nausea, Vomiting, Diarrhea, Abdominal Pain Genitourinary: No: Urgency, Frequency, Dysuria Musculoskeletal: No: Limited ROM, Weakness Skin: No Rash, No Itching Neurologic: No: Weakness, Dizziness Psychiatric: No: Anxiety, Depression Physical Exam Narrative GENERAL: Well-nourished, well-developed patient. SKIN: Warm and dry. HEAD: Normocephalic and atraumatic. EYES: No scleral icterus. No injection or drainage. ENT: No nasal drainage noted. Mucous membranes pink. Airway patent. NECK: Supple, trachea midline. No JVD. CARDIOVASCULAR: Regular rate and rhythm without murmurs, gallops, or rubs. RESPIRATORY: Breath sounds equal bilaterally. No accessory muscle use. ABDOMEN/GI: Abdomen soft, non-tender, bowel sounds present, no rebound, no guarding Gravid to 40 weeks size GENITOURINARY: Dilatation: 4 Effacement: 90 Station: 0 Presentation: vertex Membranes: intact Uterine Contractions: q5-10 minutes FHT's: Category: 1 Baseline: 150 Reactive: yes Variability: moderate Decels: none EXTREMITIES: No cyanosis or edema. BACK: Nontender without obvious deformity. No CVA tenderness. NEUROLOGICAL: Awake and alert. Motor and sensory grossly within normal limits. Five out of 5 muscle strength in all muscle groups. Normal speech. Data Data Vital Signs Reviewed: Yes Orders Ob (2e) Additional Admit Info (12/04/16 23:31) Admit To Inpatient (12/04/16 ) Code Status (12/04/16 23:37) Vital Signs (Adult) .Per protocol (12/04/16 23:37) Heart (12/04/16 23:37) Amnioinfusion (12/04/16 23:37) Urinary Catheter Management .ONCE (12/04/16 23:37) Diet Liquid (12/05/16 Breakfast) Lactated Ringer's 1000 Ml Inj (Lr 1000 M (12/04/16 23:37) Lactated Ringer's 1000 Ml Inj (Lr 1000 M (12/04/16 23:37) Sodium Chlorid 0.9% 500 Ml Inj (Ns 500 M (12/04/16 23:45) Sodium Chlor 0.9% 1000 Ml Inj (Ns 1000 M (12/04/16 23:57) Lidocaine 1% Inj (50 Ml) (Xylocaine 1% I (12/04/16 23:45) Citric Acid-Sodium Citrate Liq (Bicitra (12/04/16 23:45) Ondansetron Inj (Zofran Inj) (12/04/16 23:45) Fentanyl Inj (Fentanyl Inj) (12/04/16 23:45) Fentanyl Inj (Fentanyl Inj) (12/04/16 23:45) Complete Blood Count With Diff (12/04/16 23:37) Hold Clot (12/04/16 23:37) Abo/Rh Blood Type (12/04/16 23:37) Urinalysis - C+S If Indicated (12/04/16 23:37) Resp Oxygen Non Rebreathe Mask (12/04/16 ) ^ Epidural / Intrathecal Infus (12/04/16 23:37) Oxytocin 30 Units-500ml Premix (Pitocin (12/04/16 23:45) Lidocaine 1% Inj (50 Ml) (Xylocaine 1% I (12/04/16 23:45) Light Mineral Oil (Muri-Lube Oil) (12/04/16 23:45) Inpatient Certification (12/04/16 ) Specimen To Be Collected PRN (12/04/16 23:37) Ob/Psych Drug Screen, Urine (12/04/16 23:39) Assessment/Plan Assessment and Plan 21 y/o G1 at 40/2 weeks presents with contractions. Category 1 FHT Cervical exam: 4/90/0 GBS negative -Admit for labor and delivery -Continuous FHT -Monitor vitals -Pt requests epidural -Anticipate vaginal delivery Kevin Ramirez MD R1 Dec 04, 2016 23:40
[2016-12-04] MEDS ORDERED: ONDANSETRON HCL 4 MG/2 ML VIAL IV PRN (23:45)
[2016-12-04] MEDS ORDERED: MINERAL OIL 10 ML VIAL TOPICAL PRN (23:45)
[2016-12-04] MEDS ORDERED: SODIUM CHLORID 0.9% 500 ML INJ 500 ML IV PRN (23:45)
[2016-12-04] MEDS ORDERED: OXYTOCIN 30 UNITS-500ML PREMIX 500 ML IV ONE (23:45)
[2016-12-04] MEDS ORDERED: LIDOCAINE HCL 1% 50 ML VIAL INFIL PRN (23:45)
[2016-12-04] MEDS ORDERED: CITRIC ACID-SODIUM CITRATE LIQ 30 ML UDC PO SCH (23:45)
[2016-12-04] MEDS ORDERED: LIDOCAINE HCL 1% 50 ML VIAL I-DERMAL PRN (23:45)
[2016-12-04] MEDS ORDERED: SODIUM CHLOR 0.9% 1000 ML INJ 1,000 ML IV PRN (23:57)
[2016-12-05] VITALS (74 sets, daily range): BP systolic 85–163; BP diastolic 54–93; PULSE 67–120; RESP 16–20; TEMP 98.3–98.4
[2016-12-05 00:14] LABS: AUTOMATED NEUTROPHIL # 13.1 TH/MM3 (1.8-7.7); BASOPHIL # 0.1 TH/MM3 (0-0.2); BASOPHIL % 0.4 % (0.0-2.0); EOSINOPHIL % 0.2 % (0.0-4.0); HEMATOCRIT 35.2 % (35.0-46.0); HEMO FLAGS DIFF FINAL; LYMPH % 9.2 % (9.0-44.0); LYMPHOCYTE # 1.5 TH/MM3 (1.0-4.8); MEAN CELL VOLUME 75.6 FL (80.0-100.0); MEAN CORPUSCULAR HEMOGLOBIN 25.3 PG (27.0-34.0); MEAN CORPUSCULAR HGB CONC 33.5 % (32.0-36.0); MONO % 7.4 % (0.0-8.0); NEUT % 82.8 % (16.0-70.0); PLATELET COUNT 171 TH/MM3 (150-450); RED BLOOD COUNT 4.65 MIL/MM3 (4.00-5.30); WHITE BLOOD COUNT 15.8 TH/MM3 (4.0-11.0)
[2016-12-05] MEDS ORDERED: fentaNYL 2MCG-BUPIV 0.125% INJ 100 ML ONE (00:17)
[2016-12-05 00:23] LABS: AMPHETAMINE, URINE NEG (NEG); BACTERIA, URINE RARE /hpf; BARBITURATES, URINE NEG (NEG); BLOOD, URINE NEG (NEG); COCAINE, URINE NEG (NEG); COMMENT (UR) CULT NOT INDICATED; CULTURE IF INDICATED CULT NOT INDICATED; GLUCOSE,URINE NEG (NEG); KETONE, URINE 10 mg/dL (NEG); MUCUS URINE FEW /lpf (OCC); NITRITE,URINE NEG (NEG); SQUAMOUS EPITHELIAL CELL URINE 1 /hpf (0-5); URINE COLOR YELLOW (YELLW/STRAW)
[2016-12-05] MEDS: LACTATED RINGER'S 1000 ML INJ 1,000 ML IV SCH ×2 (00:25→00:26)
[2016-12-05] MEDS ORDERED: ePHEDrine/NS 25 MG/5 ML SYR IV PRN (01:15)
[2016-12-05] MEDS ORDERED: NO SYSTEM NARCOTICS PRN (02:00)
[2016-12-05] MEDS ORDERED: DO NOT ADMINISTER ANTICOAGULANTS PRN (02:00)
[2016-12-05] MEDS ORDERED: fentaNYL 2MCG-BUPIV 0.125% 100 ML EPIDURAL SCH (02:00)
[2016-12-05] MEDS ORDERED: OXYTOCIN 30 UNITS/NS 500ML PREMIX IV SCH (04:15)
--- NOTE | 2016-12-05 07:23 | PD.OB.DELI ---
Delivery Date: Dec 05, 2016 Anesthesia: Epidural Episiotomy: None Vaginal Delivery: Normal Presentation: Occiput anterior Nuchal Cord: x1 Delayed cord clamping (45 sec): Yes : Male One Minute : 7 Five Minute : 8 Weight: 3430g Placenta: Spontaneous delivery, Intact, 3 vessel cord Laceration: No lacerations Additional Information Spontaneous vaginal delivery. Placenta delivered spontaneously, intact. No lacerations. EBL 200ml. Delivered by Dr. Caldwell, assisted by Kevin Cavanaugh MD R1 Dec 05, 2016 07:23
[2016-12-05] MEDS ORDERED: ONDANSETRON ODT 4 MG TAB PO PRN (07:30)
[2016-12-05] MEDS ORDERED: ALUMINUM/MAGNESIUM/SIMETH 30 ML CUP PO PRN (07:30)
[2016-12-05] MEDS ORDERED: WITCH HAZEL 50%/GLYCERIN 12.5% 40 PAD JAR TOPICAL PRN (07:30)
[2016-12-05] MEDS ORDERED: SODIUM CHLORIDE 0.9% FLUSH 10 ML FLUSH IV FLUSH PRN (07:30)
[2016-12-05] MEDS ORDERED: ZOLPIDEM TARTRATE 5 MG TAB PO PRN (07:30)
[2016-12-05] MEDS ORDERED: BENZOCAINE 20% TOPICAL SPRAY 60 ML CAN TOPICAL PRN (07:30)
[2016-12-05] MEDS ORDERED: oxyCODONE/ACETAMINOPHEN 5 MG/325 MG TAB PO PRN (07:30)
[2016-12-05] MEDS ORDERED: ACETAMINOPHEN 325 MG TAB PO PRN (07:30)
[2016-12-05] MEDS ORDERED: METHYLERGONOVINE MALEATE 0.2 MG/ML VIAL ONE (07:36)
[2016-12-05] MEDS: oxyCODONE/ACETAMINOPHEN 5 MG/325 MG TAB PO PRN ×3 (08:12→22:00)
[2016-12-05] MEDS ORDERED: METHYLERGONOVINE MALEATE 0.2 MG/ML VIAL IM ONE (08:15)
[2016-12-05] MEDS ORDERED: SODIUM CHLORIDE 0.9% FLUSH 10 ML FLUSH IV FLUSH SCH (09:00)
[2016-12-05] MEDS: IBUPROFEN 600 MG TAB PO PRN ×2 (15:09→22:00)
[2016-12-05] MEDS ORDERED: DIPHTH/TETANUS/ACEL PERTUSSIS (BOOSTER) 0.5 ML VIAL/PFS IM ONE (16:00)
[2016-12-05] MEDS ORDERED: MEASLES, MUMPS, RUBELLA VACCINE 0.5 ML VIAL SQ ONE (16:00)
[2016-12-06] MEDS: oxyCODONE/ACETAMINOPHEN 5 MG/325 MG TAB PO PRN ×4 (02:02→19:05)
[2016-12-06] MEDS: IBUPROFEN 600 MG TAB PO PRN ×3 (05:14→19:04)
[2016-12-06 08:10] VITALS: BP 94/59; PULSE 71; RESP 16; TEMP 97.5
--- NOTE | 2016-12-06 09:09 | HHI.OB ---
Subjective Post Day: 1 Remarks Patient is a 21-year-old delivered at 40 weeks and 3 days. Patient is day 1 after . Patient's pain is mild and mildly well-controlled. Patient reports eating and drinking with delayed nausea but no vomiting. Patient reports improved vaginal bleeding. Patient has passed gas but no bowel movements. Patient is walking with pelvic, vaginal, thigh pain, but without lower extremity pain or or chest pain or shortness of breath. Patient reports desire for contraception with depo shot and breast-feeding. Objective Vitals/I&O Vital Signs Date Time Temp Pulse Resp B/P Pulse Ox O2 Delivery O2 Flow Rate FiO2 12/05/16 17:29 73 115/63 12/05/16 09:30 98.4 12/05/16 09:30 123/69 12/05/16 09:30 83 16 85/62 Objective Remarks GENERAL: Well-nourished, well-developed patient. CARDIOVASCULAR: Regular rate and rhythm without murmurs, gallops, or rubs. RESPIRATORY: Breath sounds equal bilaterally. No accessory muscle use. ABDOMEN/GI: Abdomen soft, non-tender. Fundus: Firm, non-tender at umbilicus. GENITOURINARY: Light to moderate bleeding. EXTREMITIES: No cyanosis or edema, non-tender, without signs of DVT. Medications and IVs Current Medications Medications (Trade) Dose Ordered Sig/Jana Route Start Time Stop Time Status Last Admin Lactated Ringer's 1,000 ml @ 125 mls/hr Q8H IV 12/04/16 23:37 12/05/16 00:26 Lactated Ringer's 1,000 ml @ 3,000 mls/hr Q20M PRN IV 12/04/16 23:37 (NS 1000 ml Inj) 1,000 ml @ 100 mls/hr Q10H PRN IV 12/04/16 23:57 Mineral Oil 10 ml 10 ml UNSCH PRN TOPICAL 12/04/16 23:45 Fentanyl/ Bupivacaine HCl 100 ml @ 0 mls/hr TITRATE EPIDURAL 12/05/16 02:00 (Pitocin 30 Units-NS 500 ml Premix) 500 ml @ 0 mls/hr TITRATE IV 12/05/16 04:15 12/05/16 07:27 (NS Flush) 2 ml BID IV FLUSH 12/05/16 09:00 (NS Flush) 2 ml UNSCH PRN IV FLUSH 12/05/16 07:30 (Tylenol) 650 mg Q4H PRN PO 12/05/16 07:30 (Motrin) 600 mg Q6H PRN PO 12/05/16 07:30 12/06/16 05:14 (Percocet 5-325 Mg) 1 tab Q4H PRN PO 12/05/16 07:30 12/06/16 05:14 (Percocet 5-325 Mg) 2 tab Q4H PRN PO 12/05/16 07:30 (Americaine 20% Top Spr) 1 spray Q4H PRN TOPICAL 12/05/16 07:30 12/05/16 08:13 (Tucks Pads) 1 applic QID PRN TOPICAL 12/05/16 07:30 12/05/16 08:13 (Breanna-Colace) 2 tab Q12H PRN PO 12/05/16 07:30 (Ambien) 5 mg HS PRN PO 12/05/16 07:30 (Mag-Al Plus Susp Liq) 15 ml Q8H PRN PO 12/05/16 07:30 (Zofran Odt) 4 mg Q6H PRN PO 12/05/16 07:30 Assessment/Plan Problem List: (1) (normal spontaneous vaginal delivery) Assessment and Plan Patient is a 21-year-old delivered at 40 weeks and 3 days. Patient is day 1 after . Patient was counseled to do 6 weeks of pelvic rest. Patient was counseled to follow up in 6 weeks. Patient requested follow-up and contraception with Depo-Provera shot. --AF VSS --Continue routine care --Motrin and Percocet when necessary for pain --Encourage OOB --Pelvic rest for 6 weeks will need follow-up appointment at that time. --Contraception: Depo-Provera shot --Anticipate discharge tomorrow Discharge Planning Anticipate discharge tomorrow. Matt Neri MD R1 Dec 06, 2016 09:09
[2016-12-06] MEDS ORDERED: medroxyPROGESTERone ACETATE SUSP 150 MG/ML SYRINGE IM ONE (10:00)
[2016-12-06] MEDS: DOCUSATE SODIUM 50 MG/SENNA 8.6 MG TAB PO PRN (11:06)
[2016-12-06 20:00] VITALS: BP 100/52; PULSE 75; RESP 16; TEMP 97.9
[2016-12-07 08:11] VITALS: BP 110/69; PULSE 69; RESP 18; TEMP 97.7
[2016-12-07] MEDS: oxyCODONE/ACETAMINOPHEN 5 MG/325 MG TAB PO PRN (08:27)
[2016-12-07] MEDS: IBUPROFEN 600 MG TAB PO PRN (08:27)
[2016-12-07] MEDS: DOCUSATE SODIUM 50 MG/SENNA 8.6 MG TAB PO PRN (08:28)
--- NOTE | 2016-12-07 08:58 | HHI.OB ---
Subjective Post Day: 2 Remarks Patient is a 21-year-old delivered at 40 weeks and 3 days. Patient is day 2 after a spontaneous vaginal delivery. Patient states pain is well controlled. Patient reports eating and drinking without any nausea or vomiting. Patient reports minimal bleeding. Patient has passed gas but has not had a bowel movement. Patient is walking without lower extremity pain or shortness of breath. Patient received Depo-Provera injection on 12/06. Patient is breast-feeding, which is going well. Objective Vitals/I&O Vital Signs Date Time Temp Pulse Resp B/P Pulse Ox O2 Delivery O2 Flow Rate FiO2 12/07/16 08:11 97.7 69 18 110/69 12/06/16 20:00 97.9 75 16 100/52 Objective Remarks GENERAL: Well-nourished, well-developed patient. CARDIOVASCULAR: Regular rate and rhythm without murmurs, gallops, or rubs. RESPIRATORY: Breath sounds equal bilaterally. No accessory muscle use. ABDOMEN/GI: Abdomen soft, non-tender. Fundus firm at umbilicus. GENITOURINARY: Light bleeding. EXTREMITIES: No cyanosis or edema, non-tender, without signs of DVT. Medications and IVs Current Medications Medications (Trade) Dose Ordered Sig/Jana Route Start Time Stop Time Status Last Admin Lactated Ringer's 1,000 ml @ 125 mls/hr Q8H IV 12/04/16 23:37 12/05/16 00:26 Lactated Ringer's 1,000 ml @ 3,000 mls/hr Q20M PRN IV 12/04/16 23:37 (NS 1000 ml Inj) 1,000 ml @ 100 mls/hr Q10H PRN IV 12/04/16 23:57 Mineral Oil 10 ml 10 ml UNSCH PRN TOPICAL 12/04/16 23:45 Fentanyl/ Bupivacaine HCl 100 ml @ 0 mls/hr TITRATE EPIDURAL 12/05/16 02:00 (Pitocin 30 Units-NS 500 ml Premix) 500 ml @ 0 mls/hr TITRATE IV 12/05/16 04:15 12/05/16 07:27 (NS Flush) 2 ml BID IV FLUSH 12/05/16 09:00 (NS Flush) 2 ml UNSCH PRN IV FLUSH 12/05/16 07:30 (Tylenol) 650 mg Q4H PRN PO 12/05/16 07:30 (Motrin) 600 mg Q6H PRN PO 12/05/16 07:30 12/07/16 08:27 (Percocet 5-325 Mg) 1 tab Q4H PRN PO 12/05/16 07:30 12/07/16 08:27 (Percocet 5-325 Mg) 2 tab Q4H PRN PO 12/05/16 07:30 (Americaine 20% Top Spr) 1 spray Q4H PRN TOPICAL 12/05/16 07:30 12/05/16 08:13 (Tucks Pads) 1 applic QID PRN TOPICAL 12/05/16 07:30 12/05/16 08:13 (Breanna-Colace) 2 tab Q12H PRN PO 12/05/16 07:30 12/07/16 08:28 (Ambien) 5 mg HS PRN PO 12/05/16 07:30 (Mag-Al Plus Susp Liq) 15 ml Q8H PRN PO 12/05/16 07:30 (Zofran Odt) 4 mg Q6H PRN PO 12/05/16 07:30 Assessment/Plan Problem List: (1) (normal spontaneous vaginal delivery) Assessment and Plan Patient is a 21-year-old delivered at 40 weeks and 3 days. She is day 2 after . * Continue routine care. * Motrin and Percocet when necessary for pain. * Encourage OOB. * Pelvic rest for 6 weeks will need follow-up appointment at that time. * Contraception: Depo-Provera shot. * Anticipate discharge today. Discharge Planning Anticipate discharge today. Caroline Beauchamp MD R1 Dec 07, 2016 08:58 Caroline Beauchamp MD R1 Dec 07, 2016 08:58 Caroline Beauchamp MD R1 Dec 07, 2016 08:58
[2016-12-07] MEDS ORDERED: IBUP-232 PO (09:35)
--- NOTE | 2016-12-07 09:38 | HHI.DCPOC ---
Discharge Care Plan Diagnosis: (1) Normal spontaneous vaginal delivery Report Symptoms to Your Doctor -Temperature above 100.5 degrees -Unusual pain or calf pain -Increased vaginal bleeding -Painful or difficulty urinating -Feelings of extreme sadness or anxiety after 2 weeks Goals to Promote Your Health * To prevent worsening of your condition and complications * To maintain your health at the optimal level Directions to Meet Your Goals Take your medications as prescribed Follow your dietary instruction Follow activity as directed Ensure plenty of rest for recovery Drink fluids for hydration Keep your appointments as scheduled Take your immunizations and boosters as scheduled If your symptoms worsen call your PCP, if no PCP go to Urgent Care Center or Emergency Room Smoking is Dangerous to Your Health. Avoid second hand smoke Call the 24-hour crisis hotline for domestic abuse at Caroline Beauchamp MD R1 Dec 07, 2016 09:38
== END 2016-12-07 12:36 | disposition home or self-care (01) | DRG 775 ==
LOC: HOBED 22:49 → H2EA 23:31 → H1EA 12-05 09:40
PROVIDERS: ADMIT Obstetrics & Gynecology Maternal & Fetal Medicine; ATTEND Obstetrics & Gynecology Maternal & Fetal Medicine
PROC: 10E0XZZ Delivery of Products of Conception, External Approach (ICD-10-PCS; principal; 2016-12-05)
PROC: 00HU33Z Insertion of Infusion Device into Spinal Canal, Percutaneous Approach (ICD-10-PCS; 2016-12-05)
PROC: 3E0R3CZ (ICD-10-PCS; 2016-12-05)
DX: O69.81X0 Labor and delivery complicated by cord around neck, without compression, not applicable or unspecified (principal); Z37.0 Single live birth; Z3A.40 40 weeks gestation of pregnancy
CPT/HCPCS: 80307; 81001; 85025; 85461; 86592; 86850; 86900; 86901; 90384; 90715; G0481; J1050; J2175; J2210; J2550; J2590; J2790; J7120

== ENCOUNTER 2017-03-16 19:06 | Emergency (ER) | payer SELFPAY ==
[~2017-03-16 19:06] MED LIST changes: +MEDR150I11 IM
[2017-03-16 19:09] VITALS: BP 119/71; PULSE 81; RESP 16; TEMP 96.7; O2SAT 98
--- NOTE | 2017-03-16 20:26 | PD ---
HPI Chief Complaint: Laceration/Skin Injury Time Seen by Provider: 19:53 Travel History International Travel<30 days: No Contact w/Intl Traveler<30days: No Traveled to known affect area: No History of Present Illness HPI Patient comes in for evaluation of a laceration to her left great toe that happened last night. Patient certainly wasn't she cut her toe on. Reports her tetanus shot is up-to-date. Patient reports minimal tenderness around laceration is worse with walking. Denies any radiation of the pain. Denies anything making this better. Patient reports she rinsed the wound off last night and decided to come in [facility] for evaluation. Denies any fevers. History Past Medical Histgory Hx Cancer: No Social History Alcohol Use: No Tobacco Use: No Allergies-Medications (Allergen,Severity, Reaction): Coded Allergies: dog dander (Unverified Allergy, Severe, 02/18/17) grass pollen (Unverified Allergy, Severe, 02/18/17) ragweed pollen (Unverified Allergy, Severe, 02/18/17) Uncoded Allergies: TREES (Allergy, Severe, 05/07/12) Reported Meds & Prescriptions Reported Meds & Active Scripts Active Medroxyprogesterone Inj 150 Mg/Ml Inj 150 Mg IM Q90D 90 Days Vitafol Ultra 29-0.6-0.4-200 mg ( Vit W/ Fe Polysacch C) 1 Cap Cap 1 Tab PO DAILY Review of Systems Except as stated in HPI: all other systems reviewed are Neg Physical Exam Narrative GENERAL: Well-developed, well nourished, in no acute distress, and non-ill appearing. SKIN: Superficial non-gaping laceration over dorsal aspect of left great toe. Is approximately 2 cm in total length. It is minimally tender. There is no crepitus, drainage, erythematous, or foreign body noted. It is afebrile. HEAD: Atraumatic. Normocephalic. EYES: Pupils equal and round. EOMI. No scleral icterus. No injection or drainage. ENT: No nasal bleeding or discharge. Mucous membranes pink and moist. NECK: Trachea midline. Supple. No nuclear rigidity. CARDIOVASCULAR: Capillary refill less than 2 seconds. RESPIRATORY: No accessory muscle use. No respiratory distress. MUSCULOSKELETAL: No obvious deformities. No clubbing. No cyanosis. No edema. Full range of motion. NEUROLOGICAL: Awake and alert. No obvious cranial nerve deficits. Motor grossly within normal limits. Normal speech. PSYCHIATRIC: Appropriate mood and affect; insight and judgment normal. Data Data Last Documented VS Vital Signs Date Time Temp Pulse Resp B/P (MAP) Pulse Ox O2 Delivery O2 Flow Rate FiO2 03/16/17 19:09 96.7 81 16 119/71 (87) 98 Room Air MDM Medical Screen Exam Complete: Yes Emergency Medical Condition: No Narrative Course History and physical exam findings are not consistent with an emergent medical condition. She was given the option of receiving additional care, but has declined. Therefore the appropriate counseling recommendations were discussed with the patient and she was instructed to follow-up with her primary care physician as soon as possible for reevaluation. Patient was also informed of community resources from which she can obtain additional care. She is agreeable and verbalizes an understanding of the proposed plan. The patient states she will immediately return to the emergency department if her current complaints do not improve, new symptoms arise, or emergent condition develops. Patient ambulated out of the emergency department without difficulty. Primary Impression: Encounter for medical screening examination Disposition: EDGO-ED USE ONLY Condition: Stable Rojelio Beth Mar 16, 2017 20:26
== END 2017-03-16 20:11 | disposition left against medical advice (07) ==
LOC: NEPK 19:06
DX: Z00.00 Encounter for general adult medical examination without abnormal findings (principal); M79.675 Pain in left toe(s)
CPT/HCPCS: 99281

== ENCOUNTER 2017-09-12 11:45 | Emergency (ER) | payer MEDICAID ==
[~2017-09-12] VITALS: Ht 157.5 cm; Wt 52.0 kg
[2017-09-12 12:24] VITALS: BP 116/57; PULSE 85; RESP 17; TEMP 98.1; O2SAT 99
--- NOTE | 2017-09-12 13:01 | RADRPT ---
EXAM DATE/TIME: 09/12/2017 12:48 [facility] COMPARISON: No previous studies available for comparison. INDICATIONS : Patient states chest pains. MEDICAL HISTORY : None. SURGICAL HISTORY : None. ENCOUNTER: Initial ACUITY: 1 day PAIN SCORE: 6/10 LOCATION: Bilateral chest FINDINGS: PA and lateral views of the chest demonstrate the lungs to be symmetrically aerated without evidence of mass, infiltrate or effusion. The cardiomediastinal contours are unremarkable. Osseous structure s are intact. CONCLUSION: No acute disease. Matt Balderas MD on September 12, 2017 at 12:59 Board Certified Radiologist. This report was verified electronically.
--- NOTE | 2017-09-12 14:42 | PD ---
HPI Chief Complaint: Cardiac Complaint Time Seen by Provider: 14:37 Travel History International Travel<30 days: No Contact w/Intl Traveler<30days: No Traveled to known affect area: No History of Present Illness HPI 22-year-old female presents to the emergency department with complaint of onset of shortness of breath while she was driving this morning and then approximately 10 minutes later onset of left-sided chest pain that went to her back, down her arm and upper neck. She said it started approximately 30 minutes prior to arrival and has slowly subsided. She denies chest pain or shortness of breath at this time. She does feel somewhat of a pressure. Denies fever, vomiting. Reports Depo-Provera shots. She traveled to [place] approximately 4 weeks ago. Denies history of DVT/PE. Says the pain was 8/10 at the time. Rates it now 4/10. Describes as pressure. No known aggravating or relieving factors. Has not taken any medications or trying treatments to alleviate her symptoms. Denies family cardiac history. Reports history of mitral valve prolapse. Denies other cardiac self history. Denies illicit drug use, EtOH. Reports tobacco use. No known allergies. History of mitral valve prolapse. Denies other significant past medical history. No primary care provider. Has no other medical complaints. No other modifying factors or associated signs and symptoms. PFSH Past Medical History ADHD: Yes Cancer: No Cardiovascular Problems: Yes (MITRAL VALVE PROLAPSE) Diabetes: No Diminished Hearing: No GERD: Yes Psychiatric: Yes (MOOD ODD) Immunizations Current: Yes Migraines: No Seizures: No Thyroid Disease: No Ulcer: No ?: Not Past Surgical History Ear Surgery: Yes (tubes) Gynecologic Surgery: Yes (teeth) Tonsillectomy: Yes Other Surgery: Yes (TONSILECTOMY) Social History Alcohol Use: No Tobacco Use: No Substance Use: Yes Allergies-Medications (Allergen,Severity, Reaction): Coded Allergies: dog dander (Unverified Allergy, Severe, 02/18/17) grass pollen (Unverified Allergy, Severe, 02/18/17) ragweed pollen (Unverified Allergy, Severe, 02/18/17) Uncoded Allergies: TREES (Allergy, Severe, 05/07/12) Reported Meds & Prescriptions Reported Meds & Active Scripts Active Medroxyprogesterone Inj 150 Mg/Ml Inj 150 Mg IM Q90D 90 Days Vitafol Ultra 29-0.6-0.4-200 mg ( Vit W/ Fe Polysacch C) 1 Cap Cap 1 Tab PO DAILY Review of Systems Except as stated in HPI: all other systems reviewed are Neg Physical Exam Narrative GENERAL: Well-nourished, well-developed female patient, in no acute distress SKIN: Warm and dry. HEAD: Atraumatic. Normocephalic. EYES: Pupils equal and round. No scleral icterus. No injection or drainage. ENT: Mucosa pink and moist. NECK: Trachea midline. CHEST: No reproducible chest wall tenderness; no crepitance or deformity. No retractions or use of accessory muscles. CARDIOVASCULAR: Regular rate and rhythm. No murmur appreciated. RESPIRATORY: No accessory muscle use. Clear to auscultation. Breath sounds equal bilaterally. No retractions or tachypnea. GASTROINTESTINAL: Flat. MUSCULOSKELETAL: No obvious deformities. No clubbing. No cyanosis. No edema. NEUROLOGICAL: Awake and alert. Oriented 3. No obvious cranial nerve deficits. Motor grossly within normal limits. Normal speech. Moves all extremities. 5/5 strength to all extremities. PSYCHIATRIC: Appropriate mood and affect; insight and judgment normal. Data Data Last Documented VS Vital Signs Date Time Temp Pulse Resp B/P (MAP) Pulse Ox O2 Delivery O2 Flow Rate FiO2 09/12/17 14:45 75 09/12/17 12:24 98.1 17 116/57 (76) 99 Orders Orders Electrocardiogram (09/12/17 12:26) Complete Blood Count With Diff (09/12/17 12:26) Basic Metabolic Panel (Bmp) (09/12/17 12:26) Ckmb (Isoenzyme) Profile (09/12/17 12:26) Troponin I (09/12/17 12:26) Chest, Pa & Lat (09/12/17 12:26) D-Dimer (09/12/17 14:51) MDM Medical Decision Making Medical Screen Exam Complete: Yes Emergency Medical Condition: Yes Medical Record Reviewed: Yes Differential Diagnosis Chest wall pain, KS, ACS, PE, musculoskeletal pain Narrative Course 22-year-old female with episode of chest pain shortness of breath that lasted approximately 30 minutes. History of mitral valve prolapse. Depo-Provera for contraception use. Traveled 4 weeks ago to [place]. Denies history of DVT/PE. No reproducible tenderness on palpation of the chest or back on physical exam. CBC, BMP, troponin, CK-MB, chest x-ray, EKG ordered in triage. Chest x-ray was normal sinus rhythm; without ST elevation or depression; reviewed by Dr. Brink. Discussed patient with Dr. Brink and she agrees with my plan of care. D-dimer ordered. 1441: Chest x-ray concludes: Chest X-Ray 09/12/17 1226 Signed Impressions: Service Date/Time: Tuesday, September 12, 2017 12:48 - CONCLUSION: No acute disease. Matt Balderas MD [id number]: The nurse informed me the patient has left. AMA: The risks of leaving against medical advice without further evaluation treatment were discussed with the patient. These risks include cardiac dysfunction, cardiac dysrhythmia, possible heart attack, possible stroke or . The patient indicated understanding of these risks and appeared to have the capacity to make this decision. Diagnosis Primary Impression: Left against medical advice Disposition: 07 AGAINST MEDICAL ADVICE Myah Blount [facility] Sep 12, 2017 14:42
--- NOTE | 2017-09-12 17:38 | EKG ---
Date Performed: 09/12/2017 Time Performed: 14:45:17 PTAGE: 22 years EKG: Sinus rhythm WITH SINUS ARRHYTHMIA Cannot rule out Inferior myocardial infarction . Compared to prior electrocard iogram, POSSIBLE Inferior myocardial infarction is now present . PREVIOUS TRACING : 09/23/2016 19.49 DOCTOR: Mak Petty Interpretating Date/Time 09/12/2017 17:36:14
== END 2017-09-12 16:32 | disposition left against medical advice (07) ==
LOC: NEPD 11:45
DX: R06.02 Shortness of breath (principal); R07.9 Chest pain, unspecified
CPT/HCPCS: 71046; 93005; 99284